=== PATIENT | female | born 1960 | race Caucasian/White ===

== ENCOUNTER 2018-08-03 05:00 | Inpatient (IN) ==
[2018-07-29 15:37] LABS: Basophils # (Auto) 0 K/mcL (0.0-0.3); Basophils % (Auto) 0.8 % (0.0-2.0); Eosinophils # (Auto) 0 K/mcL (0.0-0.7); Eosinophils % (Auto) 0.8 % (0.0-7.0); Granulocytes % (Auto) 60.9 % (38.0-78.0); Lymphocytes # (Auto) 1.4 K/mcL (1.5-4.8); Lymphocytes % (Auto) 28.2 % (15.5-49.0); Mean Cell Volume 101.1 fL (80.0-100.0); Mean Corpuscular HGB Conc 33.9 g/dL (31.0-36.0); Monocytes # (Auto) 0.5 K/mcL (0.1-0.9); Monocytes % (Auto) 9.3 % (1.0-12.0); Platelet Count 374 K/mcL (140-440); RBC 4.21 M/mcL (4.00-5.20); Red Cell Distribution Width 13.9 % (11.5-14.5)
[2018-07-29 15:46] LABS: ALT/SGPT 32 U/l (0-40); Albumin 4.3 gm/dL (3.2-5.2); Albumin/Globulin Ratio 1.5 (1.0-2.3); Alkaline Phosphatase 80 U/L (39-117); Blood Urea Nitrogen 8 mg/dl (6-20)
--- NOTE | 2018-07-29 15:59 | XRay Report ---
HISTORY: Preop for hysterectomy FINDINGS: The lungs are clear. The heart, mediastinum, valente and pleura are normal. IMPRESSION: Normal chest. Interpreted and Authenticated by: Blayne Ron 07/29/18
[2018-08-03] MEDS ORDERED: DEXAMETHASONE 10 MG/ML VIAL IV ONE (07:40)
[2018-08-03] MEDS ORDERED: MIDAZOLAM 5 MG/5 ML VIAL IV ONE (07:40)
[2018-08-03] MEDS ORDERED: PHENYLEPHRINE 10 MG/ML VIAL IV ONE (07:40)
[2018-08-03] MEDS ORDERED: GLYCOPYRROLATE 0.2 MG/ML VIAL IV ONE (07:40)
[2018-08-03] MEDS ORDERED: KETAMINE 100 MG/ML ML IV ONE (07:40)
[2018-08-03] MEDS ORDERED: ONDANSETRON 4 MG/2 ML VIAL IV ONE (07:40)
[2018-08-03] MEDS ORDERED: SUCCINYLCHOLINE 20 MG/ML ML IV ONE (07:40)
[2018-08-03] MEDS ORDERED: ROCURONIUM 10 MG/ML ML IV ONE (07:40)
[2018-08-03] MEDS ORDERED: PROPOFOL 200 MG/20 ML VIAL IV ONE (07:40)
[2018-08-03] MEDS ORDERED: fentaNYL 250 MCG/5 ML VIAL IV ONE (07:40)
[2018-08-03] MEDS ORDERED: LIDOCAINE HCL/PF 100 MG/5 ML SYRINGE IV ONE (07:40)
[2018-08-03] MEDS ORDERED: HYDROmorphone 2 MG/ML VIAL IV ONE (07:40)
[2018-08-03] MEDS ORDERED: ROPIVACAINE HCL/PF 20 ML VIAL IJ ONE (07:40)
[2018-08-03] MEDS ORDERED: cefOXitin 2 GM VIAL IV SCH (08:00)
[2018-08-03] MEDS ORDERED: FLUMAZENIL 0.1 MG/ML ML IV PRN (09:06)
[2018-08-03] MEDS ORDERED: METHOCARBAMOL 1,000 MG/10 ML VIAL IV PRN (09:06)
[2018-08-03] MEDS ORDERED: PROMETHAZINE 25 MG/ML VIAL IV PRN ×2 (09:06→10:47)
[2018-08-03] MEDS ORDERED: ONDANSETRON 4 MG/2 ML VIAL IV PRN (09:06)
[2018-08-03] MEDS ORDERED: NALOXONE HCL 0.4 MG/ML VIAL IV PRN (09:06)
[2018-08-03] MEDS ORDERED: LACTATED RINGERS 250 ML IV PRN (09:06)
[2018-08-03] MEDS ORDERED: HYDROmorphone 2 MG/ML VIAL IV PRN (09:06)
[2018-08-03] MEDS ORDERED: KETOROLAC 30 MG/ML VIAL IV PRN (09:06)
[2018-08-03] MEDS ORDERED: PROMETHAZINE 25 MG/ML VIAL IM PRN (09:06)
[2018-08-03] MEDS ORDERED: IPRATROPIUM/ALBUTEROL 3 ML AMPUL.NEB NEB PRN (09:06)
[2018-08-03] MEDS ORDERED: ACETAMINOPHEN 900 MG/90 ML BOTTLE IV ONE (09:06)
[2018-08-03] MEDS ORDERED: MEPERIDINE 50 MG/ML INJECTION IM PRN (09:06)
[2018-08-03] MEDS ORDERED: BENZOCAINE/MENTHOL 1 LOZENGE PO PRN (09:06)
[2018-08-03] MEDS ORDERED: MEPERIDINE 25 MG/ML SYRINGE IV PRN (09:06)
[2018-08-03] MEDS ORDERED: LACTATED RINGERS 1,000 ML IV SCH (09:15)
--- NOTE | 2018-08-03 09:36 | Brief Operative Note ---
Date of procedure: 08/03/18 Pre-op diagnosis: LEFT OVARIAN MASS;POSTMENOPAUSAL BLEEDING Post-op diagnosis: other (LEFT OVARIAN MASS;POST MENOPAUSAL BLEEDING) Procedure: TOTAL ABDOMINAL HYSTERECTOMY WITH BILATERAL SALPINGO-OOPHORECTOMY Grafts/Implants: No Anesthesia: GETA Findings: IRREGULAR NODULAR MASS OF LEFT OVARY Complications: none Surgeon: Yany Chaudhary Estimated blood loss (cc): 25 Specimens Removed/Pathology: other (UTERUS ;TUBES AND OVARIES) Condition: stable Disposition: PACU
[2018-08-03] MEDS: fentaNYL 100 MCG/2 ML VIAL IV PRN ×2 (10:21→10:24)
[2018-08-03] MEDS: HYDROmorphone 2 MG/ML VIAL IV PRN ×2 (11:21→17:28)
[2018-08-03] MEDS: oxyCODONE HCL 5 MG TABLET PO PRN ×2 (14:58→21:06)
[2018-08-03] MEDS: 0.9 % SODIUM CHLORIDE 10 ML SYRINGE IV SCH ×2 (14:58→22:00)
[2018-08-03] MEDS: 0.9 % SODIUM CHLORIDE 1,000 ML IV SCH (14:58)
[2018-08-03] MEDS ORDERED: ZOLPIDEM 5 MG TABLET PO PRN (21:00)
[2018-08-03] MEDS: DOCUSATE SODIUM 100 MG CAPSULE PO SCH (21:06)
[2018-08-04] MEDS: 0.9 % SODIUM CHLORIDE 1,000 ML IV SCH ×3 (00:34→18:51)
[2018-08-04] MEDS: oxyCODONE HCL 5 MG TABLET PO PRN ×6 (00:44→22:22)
[2018-08-04] MEDS: HYDROmorphone 2 MG/ML VIAL IV PRN ×3 (03:12→18:50)
[2018-08-04 06:50] LABS: Basophils # (Auto) 0 K/mcL (0.0-0.3); Basophils % (Auto) 0.2 % (0.0-2.0); Eosinophils # (Auto) 0 K/mcL (0.0-0.7); Eosinophils % (Auto) 0 % (0.0-7.0); Granulocytes % (Auto) 74.2 % (38.0-78.0); Lymphocytes # (Auto) 1.9 K/mcL (1.5-4.8); Lymphocytes % (Auto) 17.3 % (15.5-49.0); Mean Cell Volume 102.6 fL (80.0-100.0); Mean Corpuscular HGB Conc 34.2 g/dL (31.0-36.0); Monocytes # (Auto) 0.9 K/mcL (0.1-0.9); Monocytes % (Auto) 8.3 % (1.0-12.0); Platelet Count 332 K/mcL (140-440); RBC 3.56 M/mcL (4.00-5.20); Red Cell Distribution Width 13.9 % (11.5-14.5)
[2018-08-04 07:23] LABS: ALT/SGPT 17 U/l (0-40); Albumin 3.3 gm/dL (3.2-5.2); Albumin/Globulin Ratio 1.4 (1.0-2.3); Alkaline Phosphatase 56 U/L (39-117); Bilirubin,Direct < 0.2 mg/dL (0.0-0.3); Blood Urea Nitrogen 8 mg/dl (6-20); Gamma Glutamyl Transpeptidase 38 U/L (5-36); Uric Acid 3.9 mg/dL (2.5-8.0)
[2018-08-04] MEDS: PANTOPRAZOLE 40 MG TABLET PO SCH (07:30)
[2018-08-04] MEDS: 0.9 % SODIUM CHLORIDE 10 ML SYRINGE IV SCH ×3 (07:33→22:46)
[2018-08-04] MEDS: ENOXAPARIN 40 MG/0.4 ML SYRINGE SQ SCH (08:20)
[2018-08-04] MEDS: buPROPion 150 MG TAB.XL.24H PO SCH (08:20)
[2018-08-04] MEDS: DOCUSATE SODIUM 100 MG CAPSULE PO SCH ×2 (08:20→22:21)
--- NOTE | 2018-08-04 12:44 | Operative Note ---
DATE OF OPERATION: 08/03/2018 PREOPERATIVE DIAGNOSES: 1. Left ovarian mass. 2. Postmenopausal bleeding. POSTOPERATIVE DIAGNOSES: 1. Left ovarian mass. 2. Postmenopausal bleeding. PROCEDURE: Total abdominal hysterectomy with bilateral salpingo-oophorectomy. SURGEON: Yany Chaudhary M.D. FINDINGS: Irregular nodular mass left ovary with small uterus. DESCRIPTION OF PROCEDURE: Under general anesthesia, patient's abdomen was prepped and draped in a sterile field. A lower transverse Pfannenstiel-type incision was made. On entering the peritoneal cavity, the irregular nodular mass of the left ovary was noted. Incisions were dissected using electrocautery. The uterus was then grasped with a tenaculum and placed on stretch. The round ligaments were sequentially clamped, divided, and controlled with ligatures of 2-0 Vicryl. The infundibulopelvic ligament was then skeletonized and the ovarian vessels were doubly clamped, divided, and controlled with ligatures of 0 Vicryl. Anterior bladder flap was developed and dissected down past the cervix. Uterine vessels were then sequentially clamped with straight Wade clamps and divided. They were controlled with ligatures of 0 Vicryl. This was continued down to the apex of the vagina. The apex of the vagina was sequentially clamped using curved Wade clamps and excised. Specimen was passed off. The apex of the vagina was then reinforced using running locking 0 Monocryl. The round ligaments were then sewn to the apex of the vagina for stability. The peritoneum was then closed over this using running 2-0 Monocryl. Irrigation was carried out. Sponge, needle, instrument and blade counts were verified as correct. The peritoneum was closed with 2-0 Monocryl. Muscle and fascia were closed with #1 Prolene. Subcutaneous tissue was coated with Atul powder. The subcutaneous fat was closed with 2-0 Vicryl. The skin was closed with reva. The patient tolerated the procedure well. She was awakened, transferred to a bed, and taken to the postanesthetic care unit in stable, satisfactory condition. LCS:georges Job ID: [id number] Doc ID: [id number] Yany Chaudhary M.D.
--- NOTE | 2018-08-04 17:32 | General Surgery Progress Note ---
Subjective Patient reports: feels better, still having pain, flatus, no bowel movement, afebrile Narrative: Note initiated : 08/04/18 at 5:30 pm Service Date, if different from initiated Date: [] Patient: Harper Cuellar 58 y/o F admitted on 08/03/18 for Total Abdominal Hysterectomy. Chief Complaint: [patient is stable.. She has had more pain than she did on yesterday but this is because her TAP block has worn off. She had difficulty voiding but was finally able to void successfully a few hours ago. She denies nausea and is tolerating diet. She denies vaginal drainage..] Objective Temp Pulse Resp BP Pulse Ox 96.8 F L 77 14 126/79 96 08/04/18 12:00 08/04/18 12:00 08/04/18 12:00 08/04/18 12:00 08/04/18 12:00 - Additional Data Intake & Output - Last 24 hours: Intake & Output 08/02/18 08/03/18 08/04/18 08/05/18 05:59 05:59 05:59 05:59 Intake Total 6260 / 6260 1240 / 1240 Output Total 2750 / 2750 Balance 3510 / 3510 1240 / 1240 Weight 137 lb 141 lb 141 lb - General physical appearance well developed, well nourished, no distress - Eyes PERRL, normal ocular movement - ENT normal pinna, normal nares, normal mucosa, no hearing loss, no congestion - Neck no masses, no bruits, trachea midline, no lymphadenopathy, no venous distension - Respiratory normal expansion, normal respiratory effort, clear to auscultation - Cardiovascular Cardiovascular exam: Present: normal rate and rhythm, RRR, +S1, +S2. Absent: J VD, tachycardia - Abdomen tender (mild incisional tenderness otherwise benign abdomen), bowel sounds (present), surgical scars (none), masses (none) - Integumentary no rash, no growths, no abnormal pigmentation - Neurologic normal coordination, normal sensation - Musculoskeletal normal gait, normal posture - Psychiatric oriented to time, oriented to person, oriented to place, speech is normal, memory intact - Labs 08/04/18 04:45 08/04/18 04:45 Diabetes panel 08/04/18 Range/Units 04:45 Sodium 138 (133-145) mmol/L Potassium 4.3 (3.3-5.1) mmol/L Chloride 102 (96-108) mmol/L Carbon Dioxide 27 (22-30) mmol/L BUN 8 (6-20) mg/dl Creatinine 0.9 (0.6-1.1) mg/dl Glucose 103 (70-105) mg/dL Calcium 8.3 L (8.6-10.4) mg/dl AST 32 (0-37) U/l ALT 17 (0-40) U/l Alkaline Phosphatase 56 (39-117) U/L Total Protein 5.6 L (5.9-8.4) gm/dL Albumin 3.3 (3.2-5.2) gm/dL Triglycerides 39 (<150) mg/dl Calcium panel 08/04/18 Range/Units 04:45 Calcium 8.3 L (8.6-10.4) mg/dl Phosphorus 3.0 (2.7-4.5) mg/dL Albumin 3.3 (3.2-5.2) gm/dL Pituitary panel 08/04/18 Range/Units 04:45 Sodium 138 (133-145) mmol/L Potassium 4.3 (3.3-5.1) mmol/L Chloride 102 (96-108) mmol/L Carbon Dioxide 27 (22-30) mmol/L BUN 8 (6-20) mg/dl Creatinine 0.9 (0.6-1.1) mg/dl Glucose 103 (70-105) mg/dL Calcium 8.3 L (8.6-10.4) mg/dl Adrenal panel 08/04/18 Range/Units 04:45 Sodium 138 (133-145) mmol/L Potassium 4.3 (3.3-5.1) mmol/L Chloride 102 (96-108) mmol/L Carbon Dioxide 27 (22-30) mmol/L BUN 8 (6-20) mg/dl Creatinine 0.9 (0.6-1.1) mg/dl Glucose 103 (70-105) mg/dL Calcium 8.3 L (8.6-10.4) mg/dl Total Bilirubin 0.8 (0.0-1.0) mg/dL AST 32 (0-37) U/l ALT 17 (0-40) U/l Alkaline Phosphatase 56 (39-117) U/L Total Protein 5.6 L (5.9-8.4) gm/dL Albumin 3.3 (3.2-5.2) gm/dL Assessment and Plan (1) Menopausal bleeding Status: Chronic Assessment and plan: Continue to monitor overnight with plans for discharge she is able to void successfully. Current Visit: No (2) Pelvic mass Status: Chronic Current Visit: No - Time Spent With Patient Total time spent is greater than 50% in coordination of care (as documented) at patient's floor/unit and/or counseling patient:
[2018-08-05] MEDS: HYDROmorphone 2 MG/ML VIAL IV PRN ×2 (01:23→05:23)
[2018-08-05] MEDS: oxyCODONE HCL 5 MG TABLET PO PRN ×3 (03:15→11:23)
[2018-08-05] MEDS: 0.9 % SODIUM CHLORIDE 10 ML SYRINGE IV SCH (05:48)
[2018-08-05 05:58] LABS: Basophils # (Auto) 0 K/mcL (0.0-0.3); Basophils % (Auto) 0.3 % (0.0-2.0); Eosinophils # (Auto) 0 K/mcL (0.0-0.7); Eosinophils % (Auto) 0.2 % (0.0-7.0); Granulocytes % (Auto) 64.8 % (38.0-78.0); Lymphocytes # (Auto) 1.9 K/mcL (1.5-4.8); Lymphocytes % (Auto) 25.4 % (15.5-49.0); Mean Cell Volume 102.1 fL (80.0-100.0); Mean Corpuscular HGB Conc 34.9 g/dL (31.0-36.0); Monocytes # (Auto) 0.7 K/mcL (0.1-0.9); Monocytes % (Auto) 9.3 % (1.0-12.0); Platelet Count 305 K/mcL (140-440); RBC 3.19 M/mcL (4.00-5.20); Red Cell Distribution Width 14.1 % (11.5-14.5)
[2018-08-05 06:38] LABS: ALT/SGPT 18 U/l (0-40); Albumin 3.2 gm/dL (3.2-5.2); Albumin/Globulin Ratio 1.3 (1.0-2.3); Alkaline Phosphatase 59 U/L (39-117); Bilirubin,Direct < 0.2 mg/dL (0.0-0.3); Blood Urea Nitrogen 8 mg/dl (6-20); Gamma Glutamyl Transpeptidase 37 U/L (5-36)
[2018-08-05] MEDS: PANTOPRAZOLE 40 MG TABLET PO SCH (07:13)
[2018-08-05] MEDS: buPROPion 150 MG TAB.XL.24H PO SCH (08:42)
[2018-08-05] MEDS: DOCUSATE SODIUM 100 MG CAPSULE PO SCH (08:42)
[2018-08-05] MEDS: ENOXAPARIN 40 MG/0.4 ML SYRINGE SQ SCH (08:43)
[2018-08-05] MEDS ORDERED: ENOXAPARIN 30 MG/0.3 ML SYRINGE SQ SCH (09:00)
[2018-08-05] MEDS ORDERED: KETOROLAC 30 MG/ML VIAL IV PRN (11:38)
--- NOTE | 2018-08-05 14:44 | Discharge Summary ---
Providers - Providers Patient information: Note initiated : 08/05/18 at 2:42 pm Service Date, if different from initiated Date: [] Patient: Harper Cuellar 58 y/o F admitted on 08/03/18 for Total Abdominal Hysterectomy. Chief Complaint: [] Date of admission: 08/03/18 Discharge date: 08/05/18 Attending physician: Yany Chaudhary Hospitalization Hospital course: 58-year-old female who is status post abdominal hysterectomy with bilateral salpingo-oophorectomy for left pelvic mass and postmenopausal bleeding. Patient had uneventful surgery and has done well. She had some exacerbation of pain la st evening but is stooling much better at this time. She had an episode of lower back pain which was treated with Toradol successfully. She has clinically stable and is discharged home in satisfactory condition. Discharge diagnosis: left pelvic mass Secondary discharge diagnosis: Postmenopausal bleeding Reason for admission: postoperatively status post ED and BSO Procedures: Total abdominal hysterectomy with bilateral salpingo-oophorectomy Pertinent studies/significant findings: None Complications: None Exam Temp Pulse Resp BP Pulse Ox 98.7 F 72 20 116/76 95 08/05/18 12:00 08/05/18 04:00 08/05/18 12:00 08/05/18 12:00 08/05/18 12:00 - General physical appearance well developed, well nourished, no distress - Eyes PERRL, normal ocular movement - ENT normal pinna, normal nares, normal mucosa, no hearing loss, no congestion - Head Head exam IM: Present: atraumatic, normocephalic - Neck no masses, no bruits, trachea midline, no lymphadenopathy, no venous distension - Cardiovascular Cardiovascular exam IM: Present: normal rate and rhythm - Respiratory normal expansion, normal respiratory effort, clear to percussion, clear to auscultation - Abdomen Abdomen: Present: soft, tender (mild incisional tenderness; mild distention with good active bowel sounds; incision is healing uneventfully), bowel sounds Hernia: Present: none - Genitourinary Present: normal external genitalia - Integumentary Present: no rash, no growths, no abnormal pigmentation - Neurologic Present: normal coordination, normal sensation - Musculoskeletal Present: normal gait, normal posture - Psychiatric Present: oriented to time, oriented to person, oriented to place, speech is normal, memory intact Discharge Plan - Patient/Caregiver Discharge Instructions Activity: increase activity as tolerated Diet: Regular Diet Additional Instructions: Follow-up in the office on 15 August for suture removal Prescriptions: HYDROcodone/APAP 10/325MG [Clover 10-325Mg] 1 tab PO Q4H PRN #40 tab PRN Reason: Pain - Follow up Plan Follow up with: Yany Chaudhary MD [Physician] - 08/16/18 8:15 am Disposition: Home, Self-Care Prognosis: Good Rehab Potential: Good I certify that the patient requires SNF services.: No Overall status at discharge: patient is progressing back to baseline Pending Studies Resuscitation Status Full Code Diet Regular Diet Start Sophy Aug 04 1728 Bupropion HCl (Wellbutrin Xl) 300 mg PO QDAY [facility] [place] Last Admin: 08/05/18 08:42 Dose: 300 mg Documented by: Admin: 08/04/18 08:20 Dose: 300 mg Documented by: MOON Docusate Sodium (Colace) 100 mg PO BID [facility] [place] Last Admin: 08/05/18 08:42 Dose: 100 mg Documented by: Admin: 08/04/18 22:21 Dose: 100 mg Documented by: Admin: 08/04/18 08:20 Dose: 100 mg Documented by: Admin: 08/03/18 21:06 Dose: 100 mg Documented by: JERRICA Enoxaparin Sodium (Lovenox) 40 mg SQ DAILY [facility] [place] Last Admin: 08/05/18 08:43 Dose: 40 mg Documented by: Admin: 08/04/18 08:20 Dose: 40 mg Documented by: MOON Hydromorphone HCl (Dilaudid) 1 mg IV Q2HP PRN PRN Reason: PAIN LEVEL > 6 Last Admin: 08/05/18 05:23 Dose: 1 mg Documented by: Admin: 08/05/18 01:23 Dose: 1 mg Documented by: Admin: 08/04/18 18:50 Dose: 1 mg Documented by: Admin: 08/04/18 07:31 Dose: 1 mg Documented by: Admin: 08/04/18 03:12 Dose: 1 mg Documented by: Admin: 08/03/18 17:28 Dose: 1 mg Documented by: Admin: 08/03/18 11:21 Dose: 1 mg Documented by: MOON Ketorolac Tromethamine (Toradol) 30 mg IV Q6HP PRN PRN Reason: Pain Stop: 08/07/18 11:38 Last Admin: 08/05/18 11:45 Dose: 30 mg Documented by: MOON Oxycodone HCl (Roxicodone) 10 mg PO Q4HP PRN PRN Reason: PAIN LEVEL 3-6 Last Admin: 08/05/18 11:23 Dose: 10 mg Documented by: Admin: 08/05/18 07:39 Dose: 10 mg Documented by: Admin: 08/05/18 03:15 Dose: 10 mg Documented by: Admin: 08/04/18 22:22 Dose: 10 mg Documented by: Admin: 08/04/18 17:50 Dose: 10 mg Documented by: Admin: 08/04/18 14:18 Dose: 10 mg Documented by: Admin: 08/04/18 09:54 Dose: 10 mg Documented by: MOON Pantoprazole Sodium (Protonix) 40 mg PO QAMAC [facility] [place] Last Admin: 08/05/18 07:13 Dose: 40 mg Documented by: Admin: 08/04/18 07:30 Dose: 40 mg Documented by: MOON Sodium Chloride (Saline Flush) 10 ml IV Q8 [facility] [place] Last Admin: 08/05/18 05:48 Dose: 10 ml Documented by: Admin: 08/04/18 22:46 Dose: 10 ml Documented by: Admin: 08/04/18 15:34 Dose: Not Given Documented by: Admin: 08/04/18 07:33 Dose: Not Given Documented by: Admin: 08/03/18 22:00 Dose: Not Given Documented by: Admin: 08/03/18 14:58 Dose: Not Given Documented by: MOON Zolpidem Tartrate (Ambien) 5 mg PO HSP PRN PRN Reason: Insomnia Last Admin: 08/04/18 22:21 Dose: 5 mg Documented by: JERRICA Shift Summary 08/05/18 04:25 Shift Summary by Kelsey Hill AA&O x4; VSS, SB assist OOB; ad zayra in room, tolerating reg diet without nausea; managing pain with PO medications overnight with exception of one dose IV dilaudid x1; some urinary hesitancy, per pt bladder emptying seems positional, but voiding good amounts overnight; bowel sounds hyperactive, (+) flatus but still no BM; tegaderm over transverse low abdominal incision CDI with scant drainage over well approximated reva. Plan for home today as long as pain managed and elimination WNL. Initialized on 08/05/18 04:25 - END OF NOTE
--- NOTE | 2018-08-09 16:43 | Surgical Pathology Report ---
HISTOLOGY SPECIMEN MICROSCOPIC DIAGNOSIS UTERUS, OVARIES AND FALLOPIAN TUBES, HYSTERECTOMY WITH BILATERAL SALPINGO-OOPHORECTOMY: -- HIGH GRADE SEROUS CARCINOMA, WITH THE FOLLOWING FEATURES: (SEE COMMENT) - TUMOR SIZE: 3 x 2 x 2 cm. - TUMOR SITE: LEFT FALLOPIAN TUBE. - HISTOLOGIC GRADE: HIGH GRADE. - OTHER ORGAN INVOLVEMENT: LEFT OVARY. - PATHOLOGIC STAGE: AT LEAST pT1b, SEE COMMENT. -- ENDOMETRIUM: INACTIVE ENDOMETRIUM. -- MYOMETRIUM: NO DIAGNOSTIC ALTERATIONS. -- CERVIX: MILD ACUTE AND CHRONIC CERVICITIS. -- RIGHT OVARY: NO DIAGNOSTIC ALTERATIONS. -- RIGHT FALLOPIAN TUBE: NO DIAGNOSTIC ALTERATIONS. (RLF:adj) COMMENT: The specimen demonstrates invasive carcinoma with foci of papillary architecture that is morphologically and immunophenotypically (positive for CK7, p53 overexpression and elevated Ki-67) consistent with high grade serous carcinoma. Two distinct tumors are present within the left fallopian tube and the left ovary. The tumor in the fallopian tube is present at the fimbriated end and has an associated in situ component. The findings are compatible with fallopian tube origin and secondary ovarian involvement. The pathologic stage in this setting is at least pT1b. Clinical and radiologic correlation are recommended. See Summary Cancer Data for complete details. SUMMARY CANCER DATA: Procedure: Total hysterectomy and bilateral salpingo-oophorectomy. Specimen Integrity: Specimen integrity of the left fallopian tube: Serosa intact. Specimen integrity of left ovary: Capsule ruptured. Tumor Site: Left fallopian tube. Fallopian Tube Surface Involvement: Absent. Tumor Size: 3 x 2 x 2 cm. Histologic Type: Serous carcinoma. Histologic Grade: High grade. Implants: Not sampled. Other Tissue/Organ Involvement: Left ovary, 3 x 1.8 x 0.7 cm. Peritoneal/Ascitic Fluid: Not submitted. Regional Lymph Nodes: No lymph nodes submitted or found. Pathologic Stage: At least pT1b NX MX. MICROSCOPIC DESCRIPTION Immunohistochemical studies are performed (block A10). Cells of interest: Tumor cells. PAX8, WT1: Positive. CK7: Variably positive. CK20: Negative. p53: Positive for overexpression. Estrogen and progesterone receptors: Variably positive. p16: Positive. Proliferation index (Ki-67): Elevated (greater than 75%). Interpretation: High grade serous carcinoma. Some of the tests reported here may not have been cleared or approved by the [place]. Food and Drug Administration (FDA). However, the FDA has determined that such clearance or approval is not necessary. Pursuant to the requirements of CLIA, this laboratory has established and verified the accuracy and precision of all tests, and additional information about these tests is available upon request. All technical controls are adequate. CLINICAL HISTORY Adnexal mass; postmenopausal bleeding. GROSS DESCRIPTION Received in formalin labeled uterus, cervix, bilateral tubes and bilateral ovaries, is a hysterectomy specimen consisting of uterus with attached cervix and adnexae. The hysterectomy specimen weighs 65 grams and measures 7.9 x 3.3 x 2.1 cm. The serosal surface is pink-hodgson and unremarkable. The cervix is hodgson. The external cervical os is ovoid and 0.7 cm. Bivalving reveals the endometrium is pink-hodgson and up to 0.1 cm thick. Myometrium is striated and 1.2 cm thick. Grossly there are no nodules, lesions, areas of calcifications or necrosis identified. The right ovary is purple-hodgson and measures 3 x 1.8 x 1.1 cm. Cut surfaces are pink-hodgson with an orange-walled corpus luteum. The attached right fallopian tube consists of a purple-hodgson tubal segment with central pinpoint lumen and fimbriated end measuring 6 cm in length and 0.6 cm in diameter. The left ovary consists of a disrupted ovary measuring 3.3 x 2 x 1.4 cm. Extending from the disrupted area are two firmer hodgson tissue fragments that measure 3 x 1.8 x 0.7 cm in aggregate. Cut surfaces are hodgson. The attached left fallopian tube consists of a purple-hodgson tubal segment with central pinpoint lumen and fimbriated end measuring 7 cm in length. The majority of this tube is and 0.5 cm in diameter. At the fimbriated end there is a dilated area that measures 2 cm in diameter and 3 cm in length. Sectioning through this region reveals an intratubal hodgson-white proliferation with foci of papillary architecture and two cavitary spaces measuring 1 and 1.2 cm in diameter. [employer] sections submitted in eleven cassettes: A1 - cervix and cul-de-sac shaving; A2 - anterior endomyometrium; A3 - posterior endomyometrium; A4 - right ovary and fallopian tube; A5-A6 - composite full cross section left ovary including disrupted area and hodgson tissue extending from the disrupted area; A7 - grossly normal left fallopian tube; A8-A9 - composite cross section left fallopian tube mass; A10-A11 - composite cross section left fallopian tube mass. (SCB:sln) Electronically Signed by: Jyotsna Mixon M.D.
== END 2018-08-05 15:35 | disposition home or self-care (01) | DRG 742 ==
LOC: MEDSUR 05:00 → EDSTATUS 07:30
PROVIDERS: ADMIT Family Medicine Adult Medicine; ATTEND Family Medicine Adult Medicine